=== PATIENT | female | born 1995 | race Caucasian/White ===

== ENCOUNTER 2017-10-26 23:06 | Emergency (ER) | payer OTHER, SELFPAY ==
--- NOTE | 2017-10-26 23:35 | EDPHYS ---
Physician Documentation [facility] Name: Vane Rodríguez Age: 22 yrs Sex: Female : 1995 Arrival Date: 10/26/2017 Time: 23:11 Bed 14 Private MD: ED Physician Dwayne Wakefield HPI: 10/26 23:36 This 22 yrs old Female presents to ER via Ambulatory with complaints of jr8 POSSIBLE STAPH INFECTION ON ARM. 23:36 The patient presents with an abscess of the right axilla. Description: The affected jr8 area is small, well demarcated, pointed, tense, warm. Onset: The symptoms/episode began/occurred gradually, 2 week(s) ago. Possible cause(s): unknown. Associated signs and symptoms: The patient has no apparent associated signs or symptoms. Severity of symptoms: At their worst the symptoms were mild. It is unknown whether or not the patient has had similar symptoms in the past. The patient has not recently seen a physician. 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 - Social history:: Smoking status: Patient uses tobacco products, smokes one-half pack cigarettes per day, Patient uses alcohol, occasionally. - Ebola Screening: : Patient negative for fever greater than or equal to 101.5 degrees Fahrenheit, and additional compatible Ebola Virus Disease symptoms Patient denies exposure to infectious person Patient denies travel to an Ebola-affected area in the 21 days before illness onset. ROS: 23:36 Eyes: Negative for injury, pain, redness, and discharge, ENT: Negative for injury, jr8 pain, and discharge, Neck: Negative for injury, pain, and swelling, Cardiovascular: Negative for chest pain, palpitations, and edema, Respiratory: Negative for shortness of breath, cough, wheezing, and pleuritic chest pain, Abdomen/GI: Negative for abdominal pain, nausea, vomiting, diarrhea, and constipation, Back: Negative for injury and pain, MS/Extremity: Negative for injury and deformity, Neuro: Negative for headache, weakness, numbness, tingling, and seizure. 23:36 Skin: Positive for abscess. Exam: 23:36 Cardiovascular: Regular rate and rhythm with a normal S1 and S2. No gallops, murmurs, jr8 or rubs. Normal PMI, no JVD. No pulse deficits. Respiratory: Lungs have equal breath sounds bilaterally, clear to auscultation and percussion. No rales, rhonchi or wheezes noted. No increased work of breathing, no retractions or nasal flaring. MS/ Extremity: Pulses equal, no cyanosis. Neurovascular intact. Full, normal range of motion. Neuro: Awake and alert, GCS 15, oriented to person, place, time, and situation. Cranial nerves II-XII grossly intact. Motor strength 5/5 in all extremities. Sensory grossly intact. Cerebellar exam normal. Normal gait. 23:36 Skin: abscess, that is small, approximately 1.5 cm(s), of the right axilla, with pointing, that is obvious. Vital Signs: 23:15 BP 125 / 88; Pulse 75; Resp 18; Temp 97.7(O); Pulse Ox 99% on R/A; Weight 90.72 kg (R); fc Height 5 ft. 3 in. (160.02 cm) (R); Pain 3/10; 23:15 Body Mass Index 35.43 (90.72 kg, 160.02 cm) fc MDM: 23:27 Patient medically screened. jr8 23:33 Data reviewed: vital signs, nurses notes, and as a result, I will discharge patient. jr8 Data interpreted: Pulse oximetry: on room air is 99 %. Interpretation: normal. Counseling: I had a detailed discussion with the patient and/or guardian regarding: the historical points, exam findings, and any diagnostic results supporting the discharge/admit diagnosis, the need for outpatient follow up, a family practitioner, to return to the emergency department if symptoms worsen or persist or if there are any questions or concerns that arise at home. 23:36 ED course: abscess drained via pressure. No incision or lancing needed . jr8 Administered Medications: No medications were administered Disposition: 10/27 00:16 Co-signature as Attending Physician, Dwayne Wakefield MD. lulu Disposition: 10/26/17 23:34 Discharged to Home. Impression: Cutaneous abscess of right axilla. - Condition is Stable. - Discharge Instructions: Skin Abscess, Incision and Drainage. - Prescriptions for Bactrim DS 800- 160 mg Oral Tablet - take 1 tablet by ORAL route every 12 hours for 10 days; 20 tablet. - Medication Reconciliation Form, Thank You Letter, Antibiotic Education, Prescription Opioid Use form. - Follow up: Private Physician; When: 5 - 6 days; Reason: Wound Recheck, Recheck today's complaints, Continuance of care, Re-evaluation by your physician. - Problem is new. - Symptoms have improved. Signatures: Dwayne Wakefield MD MD pkl Chretien, Felicia RN RN Bentley Vargas PA PA jr8 Tho Harper RN RN ao Corrections: (The following items were deleted from the chart) 10/26 23:34 23:34 10/26/2017 23:34 Discharged to Home. Impression: Local infection of the skin and jr8 subcutaneous tissue, unspecified; Cutaneous abscess of right axilla. Condition is Stable. Forms are Medication Reconciliation Form, Thank You Letter, Antibiotic Education, Prescription Opioid Use. Follow up: Private Physician; When: 5 - 6 days; Reason: Wound Recheck, Recheck today's complaints, Continuance of care, Re-evaluation by your physician. Problem is new. Symptoms have improved. jr8 23:51 23:34 10/26/2017 23:34 Discharged to Home. Impression: Cutaneous abscess of right ao axilla. Condition is Stable. Forms are Medication Reconciliation Form, Thank You Letter, Antibiotic Education, Prescription Opioid Use. Follow up: Private Physician; When: 5 - 6 days; Reason: Wound Recheck, Recheck today's complaints, Continuance of care, Re-evaluation by your physician. Problem is new. Symptoms have improved. jr8
--- NOTE | 2017-10-26 23:35 | ER ---
Nurse's Notes [facility] Name: Vane Rodríguez Age: 22 yrs Sex: Female : 1995 Arrival Date: 10/26/2017 Time: 23:11 Bed 14 Private MD: Diagnosis: Cutaneous abscess of right axilla Presentation: 10/26 23:15 Presenting complaint: Patient states: that she has this white bump area on her right fc aux area. Started 2 weeks ago. No drainage noted. Transition of care: patient was not received from another setting of care. Onset of symptoms was September 2017. Risk Assessment: Do you want to hurt yourself or someone else? Patient reports no desire to harm self or others. Initial Sepsis Screen: Does the patient meet any 2 criteria? No. Patient's initial sepsis screen is negative. Does the patient have a suspected source of infection? No. Patient's initial sepsis screen is negative. Care prior to arrival: None. 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 - Social history:: Smoking status: Patient uses tobacco products, smokes one-half pack cigarettes per day, Patient uses alcohol, occasionally. - Ebola Screening: : Patient negative for fever greater than or equal to 101.5 degrees Fahrenheit, and additional compatible Ebola Virus Disease symptoms Patient denies exposure to infectious person Patient denies travel to an Ebola-affected area in the 21 days before illness onset. Screenin:15 Abuse screen: Denies threats or abuse. Abuse screen: Denies threats or abuse. fc Nutritional screening: No deficits noted. Tuberculosis screening: No symptoms or risk factors identified. Fall Risk None identified. Assessment: 23:25 General: Appears in no apparent distress. comfortable, Behavior is calm, cooperative, ao appropriate for age. Pain: Complains of pain in right scapular area. Neuro: Level of Consciousness is awake, alert, obeys commands, Oriented to person, place, time, situation, Appropriate for age Warranty Manager are equal bilaterally Moves all extremities. Full function Gait is steady, Speech is normal, Facial symmetry appears normal, Pupils are PERRLA. Cardiovascular: Denies chest pain, lightheadedness, shortness of breath, vomiting, Capillary refill < 3 seconds. Respiratory: Airway is patent Respiratory effort is even, unlabored, Respiratory pattern is regular, symmetrical. GI: Abdomen is non-distended. : No signs and/or symptoms were reported regarding the genitourinary system. EENT: No signs and/or symptoms were reported regarding the EENT system. Derm: Skin has lesions on right upper arm Skin is pink, warm \T\ dry. normal, Skin temperature is warm. Musculoskeletal: No signs and/or symptoms reported regarding the musculoskeletal system. Vital Signs: 23:15 BP 125 / 88; Pulse 75; Resp 18; Temp 97.7(O); Pulse Ox 99% on R/A; Weight 90.72 kg (R); fc Height 5 ft. 3 in. (160.02 cm) (R); Pain 3/10; 23:15 Body Mass Index 35.43 (90.72 kg, 160.02 cm) ED Course: 23:11 Patient arrived in ED. es 23:12 Bentley Salmeron PA is PHCP. Ayaan 23:12 Dwayne Wakefield MD is Attending Physician. [facility] 23:15 Tho Harper, ELVIRA is Primary Nurse. ao 23:15 Arm band placed on Patient placed in an exam room, on a stretcher. fc 23:15 Patient has correct armband on for positive identification. Placed in gown. Bed in low fc position. Call light in reach. 23:20 Triage completed. fc 23:51 No provider procedures requiring assistance completed. Patient did not have IV access ao during this emergency room visit. Administered Medications: No medications were administered Outcome: 23:34 Discharge ordered by . [facility] 23:51 Discharged to home ambulatory. ao 23:51 Condition: stable 23:51 Discharge instructions given to patient, Instructed on discharge instructions, follow up and referral plans. Demonstrated understanding of instructions, follow-up care, medications, Prescriptions given X 2. 23:51 Patient left the ED. ao Signatures: Maribel Shipley Felicia, RN RN Bentley Salmeron PA PA 8 Harper, Tho, RN RN ao
== END 2017-10-26 23:51 | disposition home or self-care (01) ==
LOC: ER 23:06
DX: L02.411 Cutaneous abscess of right axilla (principal); F17.210 Nicotine dependence, cigarettes, uncomplicated
CPT/HCPCS: 99282

== ENCOUNTER 2024-06-17 12:51 | Emergency (ER) | payer SELFPAY ==
[2024-06-17] MEDS ORDERED: NA CHLORIDE 0.9% 100 ML ONE (13:46)
[2024-06-17] MEDS ORDERED: TDAP (DIPHTH,PERTUSS(ACELL),TET VAC) 0.5 ML VIAL IMVAC ONE (13:46)
[2024-06-17] MEDS ORDERED: AMPICILLIN/SULBACTAM 3GM/VIAL ONE (13:46)
--- NOTE | 2024-06-17 15:37 | RAD REPORT ---
EXAMINATION: XR Foot Right 3 View CLINICAL INDICATION: Female, 28 years old. [facility] MAIN ANIMAL BITE Bed Name: [id number] TECHNIQUE: 3 view radiographs of the left foot were obtained. COMPARISON: No prior exam. FINDINGS: No evidence of fracture or dislocation. Normal alignment. No evidence of arthropathy or oth er focal bone lesion. Soft tissue swelling about the dorsum of the forefoot to mid foot. Enthesopathy at the Achilles tendon attachment. No significant degenerative changes. IMPRESSION: Soft tissue swelling along the dorsum of the foot without acute osseous abnormality.
--- NOTE | 2024-06-17 15:42 | ER ---
Nurse's Notes [facility] Name: Vane Rodríguez Age: 28 yrs Sex: Female : 1995 Arrival Date: 06/17/2024 Time: 12:51 Bed Treatment Private MD: Diagnosis: Bitten by dog Presentation: 06/17 13:05 Chief complaint: Patient states: Dog bite to right foot - wound check. Coronavirus ld1 screen: At this time, the client does not indicate any symptoms associated with coronavirus-19. Ebola Screen: No symptoms or risks identified at this time. Initial Sepsis Screen: Does the patient meet any 2 criteria? No. Patient's initial sepsis screen is negative. Does the patient have a suspected source of infection? No. Patient's initial sepsis screen is negative. Risk Assessment: Do you want to hurt yourself or someone else? Patient reports no desire to harm self or others. Onset of symptoms was June 17, 2024 at 13:06. 13:05 Method Of Arrival: Ambulatory ld1 13:05 Acuity: KASEY 4 ld1 Triage Assessment: 13:06 Bite description: bite sustained to right first toe, right second toe and right third ld1 toe by a dog, animal information: vaccination(s) is current. General: Appears in no apparent distress. comfortable, Behavior is calm, cooperative, appropriate for age. Pain: Complains of pain in right first toe and right second toe Pain does not radiate. Pain currently is 8 out of 10 on a pain scale. Quality of pain is described as throbbing, Pain began suddenly, Is continuous. EENT: No signs and/or symptoms were reported regarding the EENT system. Neuro: Level of Consciousness is awake, alert, obeys commands, Oriented to person, place, time, situation. Cardiovascular: Capillary refill < 3 seconds Patient's skin is warm and dry. Respiratory: Airway is patent Respiratory effort is even, unlabored. GI: Abdomen is round non-distended. : No signs and/or symptoms were reported regarding the genitourinary system. Derm: No signs and/or symptoms reported regarding the dermatologic system. Musculoskeletal: No signs and/or symptoms reported regarding the musculoskeletal system. 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 - Infectious Disease History:: Denies. - Social history:: Smoking status: Patient denies any tobacco usage or history of. Screenin:45 [facility] ED Fall Risk Assessment (Adult) History of falling in the last 3 months, me1 including since admission No falls in past 3 months (0 pts) Confusion or Disorientation No (0 pts) Intoxicated or Sedated No (0 pts) Impaired Gait No (0 pts) Mobility Assist Device Used No (0 pt) Altered Elimination No (0 pt) Score/Fall Risk Level 0 - 2 = Low Risk Maintained a safe environment, Provided non-skid footwear, Hourly rounding (assess needs \T\ fall precautionary measures) done. Abuse screen: Denies threats or abuse. Nutritional screening: No deficits noted. Tuberculosis screening: No symptoms or risk factors identified. Assessment: 13:45 General: Appears in no apparent distress. well developed, well nourished, Behavior is me1 calm, cooperative, appropriate for age, Reports here for a wound check to right foot where her dog bit her on Thursday. Pain: Complains of pain in right leg and dorsum of right foot and right foot and right third toe and right second toe and right first toe Pain does not radiate. Pain currently is 5 out of 10 on a pain scale. Quality of pain is described as aching, Pain began suddenly, Is continuous. Neuro: Level of Consciousness is awake, alert, obeys commands, Oriented to person, place, time, situation, Appropriate for age. Cardiovascular: Patient's skin is warm and dry. Respiratory: Airway is patent Respiratory effort is even, unlabored, Respiratory pattern is regular, symmetrical. GI: No signs and/or symptoms were reported involving the gastrointestinal system. : No signs and/or symptoms were reported regarding the genitourinary system. EENT: No signs and/or symptoms were reported regarding the EENT system. Derm: Skin is healthy with good turgor, Skin is pink, warm \T\ dry. Wound noted right leg and dorsum of right foot and right foot and right third toe and right second toe and right first toe. Musculoskeletal: Reports pain in right foot. Injury Description: Bite sustained to dorsum of right foot and right foot and right third toe and right second toe and right first toe caused by a dog, is full thickness, from animal, was sustained 2 days ago. 14:18 Reassessment: Called [place] [employer] to report dog bite at [address] [facility] [facility], me1 [place] by patient's own dog, a lab mix, that is UTD on shots. Spoke with Cara. Officer is out on a call but will catch up with patient later today when she gets home. Vital Signs: 13:05 Pulse 99; Resp 18; Temp 97.5(TE); Pulse Ox 96% on R/A; Weight 90.72 kg; Height 5 ft. 4 ld1 in. ; Pain 3/10; 13:05 BP 134 / 88; ld1 15:42 BP 128 / 79; Pulse 89; Resp 17; Temp 98.4; Pulse Ox 97% ; me1 13:05 Body Mass Index 34.33 (90.72 kg, 162.56 cm) ld1 13:05 Pain Scale: Adult ld1 ED Course: 12:56 Patient arrived in ED. im 12:58 Lew Alcantara FNP-C [facility] 12:58 Coleman Lugo MD is Attending Physician. dr5 13:06 Triage completed. ld1 13:06 Arm band placed on right wrist. ld1 13:11 Inserted saline lock: 20 gauge in right antecubital area, using aseptic technique. ld1 13:44 Carolina Preston, ELVIRA is Primary Nurse. me1 13:45 Patient has correct armband on for positive identification. Bed in low position. Call me1 light in reach. Side rails up X2. Provided Education on: POC. Verbalized understanding.. Client placed on continuous cardiac and pulse oximetry monitoring. NIBP monitoring applied. Pulse ox on. NIBP on. 13:45 No provider procedures requiring assistance completed. me1 14:57 Foot Right 3 View XRAY In Process Unspecified. EDMS 15:47 IV discontinued, intact, bleeding controlled, No redness/swelling at site. Pressure me1 dressing applied. Administered Medications: 13:56 Drug: Ampicillin-Sulbactam Sodium IVPB 3 grams IVPB once over 30 mins; (mix in 100 mL me1 NS) Route: IVPB; Infused Over: 30 mins; Site: right antecubital; 14:59 Follow up: Response: No adverse reaction; IV Status: Completed infusion; IV Intake: me1 100ml 13:56 Drug: Boostrix Tdap IM 0.5 ml IM once; as a single dose Route: IM; Site: left deltoid; me1 14:16 Follow up: Response: No adverse reaction me1 Medication: 13:45 VIS not applicable for this client. me1 Intake: 14:59 IV: 100ml; Total: 100ml. me1 Outcome: 15:42 Discharge ordered by MD. dr5 15:47 Discharged to home ambulatory, with friend, me1 15:47 Condition: stable 15:47 Discharge instructions given to patient, friend, Instructed on discharge instructions, follow up and referral plans. medication usage, wound care, Demonstrated understanding of instructions, follow-up care, medications, wound care, Prescriptions given X 1, 15:47 Patient left the ED. me1 Signatures: Dispatcher [employer] EDSC Sarah Louis RN RN ld1 Jennifer Austin Michelle, RN RN me1 Lew Alcantara, PIANO PROFESSOR-C PIANO PROFESSOR-Cdr5 Corrections: (The following items were deleted from the chart) 13:57 13:05 Chief complaint: Patient states: Dog bite to right foot - wound check. ld1 me1 14:18 13:05 Chief complaint: Patient states: Dog bite to right foot - wound check. me1 me1
--- NOTE | 2024-06-17 15:42 | EDPHYS ---
Physician Documentation [facility] Name: Vane Rodríguez Age: 28 yrs Sex: Female : 1995 Arrival Date: 06/17/2024 Time: 12:51 Bed Treatment Private MD: ED Physician Coleman Lugo HPI: 06/17 13:23 This 28 yrs old Female presents to ER via Ambulatory with complaints of Dog dr5 Bite. 13:23 Onset: The symptoms/episode began/occurred 3 day(s) ago. Patient is a two 8-year-old dr5 female with no past medical history coming in with dog bite to right foot that occurred 3 days ago. Patient did not report to police. Patient is vaccinated friend's dog. Patient reports she is has some redness and swelling and wanted make sure her foot was okay. Patient ambulatory with steady gait. Unknown last tetanus. 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 - Infectious Disease History:: Denies. - Social history:: Smoking status: Patient denies any tobacco usage or history of. ROS: 13:23 Constitutional: as per hpi dr5 Exam: 13:23 Constitutional: This is a well developed, well nourished patient who is awake, alert, dr5 and in no acute distress. Head/Face: Normocephalic, atraumatic. Eyes: Pupils equal round and reactive to light, extra-ocular motions intact. Lids and lashes normal. Conjunctiva and sclera are non-icteric and not injected. Cornea within normal limits. Periorbital areas with no swelling, redness, or edema. Neck: Trachea midline, no thyromegaly or masses palpated, and no cervical lymphadenopathy. Supple, full range of motion without nuchal rigidity, or vertebral point tenderness. No Meningismus. Chest/axilla: Normal chest wall appearance and motion. Nontender with no deformity. No lesions are appreciated. Cardiovascular: Regular rate and rhythm with a normal S1 and S2. Normal PMI, no JVD. No pulse deficits. Respiratory: Lungs have equal breath sounds bilaterally, clear to auscultation. No rales, rhonchi or wheezes noted. No increased work of breathing, no retractions or nasal flaring. Back: No spinal tenderness. No costovertebral tenderness. Full range of motion. MS/ Extremity: Pulses equal, no cyanosis. Neurovascular intact. Full, normal range of motion. Neuro: Awake and alert, GCS 15, oriented to person, place, time, and situation. Cranial nerves II-XII grossly intact. Motor strength 5/5 in all extremities. Sensory grossly intact. Cerebellar exam normal. Normal gait. 13:23 Skin: abscess, not appreciated, cellulitis, that is minimal, on the dorsum of right foot, induration, is not appreciated, Vital Signs: 13:05 Pulse 99; Resp 18; Temp 97.5(TE); Pulse Ox 96% on R/A; Weight 90.72 kg; Height 5 ft. 4 ld1 in. ; Pain 3/10; 13:05 BP 134 / 88; ld1 15:42 BP 128 / 79; Pulse 89; Resp 17; Temp 98.4; Pulse Ox 97% ; me1 13:05 Body Mass Index 34.33 (90.72 kg, 162.56 cm) ld1 13:05 Pain Scale: Adult ld1 MDM: 13:00 Medical Screening Exam initiated dr5 13:23 Differential diagnosis: vascular injury, rabies, cellulitis. Rabies Status: History of dr5 Rabies Immunization. Data reviewed: vital signs, nurses notes. I considered the following discharge prescriptions or medication management in the emergency department Medications were administered in the Emergency Department. See MAR. Care significantly affected by the following Social Determinants of Health: Poor access to healthcare and/or lack of insurance, Poor access to transportation, Problems related to employment. Counseling: I had a detailed discussion with the patient and/or guardian regarding the historical points, exam findings, and any diagnostic results supporting the discharge/admit diagnosis, the presence of at least one elevated blood pressure reading (>120/80) during this emergency department visit, the need for outpatient follow up, for definitive care, a family practitioner, to return to the emergency department if symptoms worsen or persist or if there are any questions or concerns that arise at home. ED course: Tetanus will be updated in ER. X-ray completed to rule out osteomyelitis. No laceration, but small puncture wound noted with serosanguineous drainage. Will give first dose of Unasyn IV in ER and prescribed patient Augmentin twice daily for next 2 days. Recommended patient follow-up please make report even though patient is vaccinated.. 06/17 13:09 Order name: Foot Right 3 View XRAY; Complete Time: 15:41 dr5 06/17 13:11 Order name: Saline Lock; Complete Time: 13:11 ld1 Administered Medications: 13:56 Drug: Ampicillin-Sulbactam Sodium IVPB 3 grams IVPB once over 30 mins; (mix in 100 mL me1 NS) Route: IVPB; Infused Over: 30 mins; Site: right antecubital; 14:59 Follow up: Response: No adverse reaction; IV Status: Completed infusion; IV Intake: me1 100ml 13:56 Drug: Boostrix Tdap IM 0.5 ml IM once; as a single dose Route: IM; Site: left deltoid; me1 14:16 Follow up: Response: No adverse reaction me1 Disposition: 15:51 Co-signature as Attending Physician, Coleman Lugo MD I agree with the assessment and manjit plan of care. Disposition Summary: 06/17/24 15:42 Discharge Ordered Notes: Location: Home dr5 Condition: Stable dr5 Diagnosis - Bitten by dog dr5 Followup: dr5 - With: Emergency Department - When: As needed - Reason: Worsening of condition Followup: dr5 - With: Private Physician - When: 1 - 2 days - Reason: Recheck today's complaints, Continuance of care, Re-evaluation by your physician Discharge Instructions: - Discharge Summary Sheet dr5 - Animal Bite, Adult dr5 Forms: - Medication Reconciliation Form dr5 - Antibiotic Education dr5 - Patient Portal Instructions dr5 - Leadership Thank You Letter dr5 Prescriptions: - Augmentin 875-125 mg Oral Tablet - take 1 tablet ORAL route every 12 hours for 10 days; 20 tablet; Refills: 0, dr5 Product Selection Permitted Signatures: Dispatcher [employer] Coleman Christian MD MD cha Sims, Lauren RN RN ld1 Carolina Preston RN RN me1 Lew Alcantara, ZAKIYA-C BOILERMAKER'S ASSISTANT-Cdr5
[2024-06-17 16:33] VITALS: BP 128/79; TEMP 98.4; O2SAT 97
== END 2024-06-17 15:47 | disposition home or self-care (01) ==
LOC: ER 12:51
DX: S91.331A Puncture wound without foreign body, right foot, initial encounter (principal); L03.115 Cellulitis of right lower limb; W54.0XXA Bitten by dog, initial encounter
CPT/HCPCS: 90715; 96365; 96372; 99284; J0295